=== PATIENT | male | born 1960 | race Caucasian/White ===

== ENCOUNTER → 2017-06-22 10:31 | Outpatient (CLI) | payer MEDICARE, SELFPAY ==
[2017-06-22 12:01] LABS: Hemoglobin A1c 6.4 % (4.2-6.3)
[2017-06-22 12:22] LABS: Anion Gap 8 (5-15); BUN 40 mg/dL (7-18); BUN/Creat Ratio 22.7 RATIO (10-20); Calcium,Total 9.7 mg/dL (8.5-10.1); Chloride 92 mmol/L (98-107); Creatinine, Serum 1.76 mg/dL (0.70-1.30); EST Glomerular Filtration Rate 43 mL/min (>60); Est Glom Filt Rate - Afr Amer 52 mL/min (>60); Glucose 88 mg/dL (74-106); Potassium 3.4 mmol/L (3.5-5.1); Sodium Level 133 mmol/L (136-145); Thyroid Stim Hormone (TSH) 1.88 uIU/mL (0.358-3.74)
== END ==
PROVIDERS: Family Provider Family Medicine; PCP Family Medicine; Visit Provider Family Medicine
DX: I50.9 Heart failure, unspecified (principal); E11.9 Type 2 diabetes mellitus without complications
CPT/HCPCS: 36415; 80048; 83036; 84443

== ENCOUNTER 2017-07-21 13:00 | Inpatient (IN) | payer OTHER, SELFPAY ==
--- NOTE | 2017-07-21 | APP_PTH ---
PATIENT: Danielle DURAN LOC: PCU U#:[id number] AGE/SX: 57/M ROOM: [facility] RE07/21/[address]: Dr. Joss Lockwood MD : 1960 BED: 1 DIS: 07/24/2017 SPEC #: [id number] RECD: 07/24/17 10:15 STATUS: JONO REAneudy #: [id number] HATTIE: 07/21/17 00:[address]: Joss Lockwood DEPT: SURGICAL PATHOLOGY RECD BY: Maurice Caro ENTERED: 07/24/17 10:15 SP TYPE: APPENDIX OTHR DR: Dr. Elsa Mcnair MD Tissues: Appendix, NOS Procedures: Surgery Specimen Level III HEADER OPERATION: Laparoscopic appendectomy PRE-OP DIAGNOSIS: Acute appendicitis TISSUE SUBMITTED: Appendix MICROSCOPIC DIAGNOSIS Appendix, appendectomy: Acute necrotizing appendicitis. Acute serositis. AM:rasheed 07/25/17 MICROSCOPIC DESCRIPTION Slides are reviewed. GROSS DESCRIPTION Received is one container labeled with the patient's name and designated appendix. The specimen consists of an L-shaped appendix measuring 8 cm in length and up to 1 cm in average diameter. The serosa is congested. No obvious perforation is identified. The attached periappendiceal adipose tissue measures up to 2 cm in width. The lumen contains fecal material. No fecalith is identified. Also present in the lumen is semisolid fecal material. Grades 1 6 Tutor sections are submitted in one cassette. / SJ:rasheed 07/24/17 TC:2 CPT: 65082
--- NOTE | 2017-07-21 13:02 | EKG12_ITS ---
Test Reason : PRE OP Blood Pressure : / mmHG Vent. Rate : 089 BPM Atrial Rate : 089 BPM P-R Int : 132 ms QRS Dur : 184 ms QT Int : 412 ms P-R-T Axes : 068 233 033 degrees QTc Int : 501 ms Atrial-sensed ventricular-paced rhythm Biventricular pacemaker detected Abnormal ECG Confirmed by RIKY SCHWARTZ, GIULIA ([id number]), videotape editor JULIANO PADRON ([id number]) on 07/26/2017 5:31:09 PM Referred By: Confirmed By:GIULIA LAN MD
--- NOTE | 2017-07-21 14:08 | CT_ITS ---
STUDY: CT ABDOMEN AND PELVIS WITH CONTRAST REASON FOR EXAM: Male, 57 years old. Right lower quadrant pain RADIATION DOSAGE (If Supplied By Facility): CTDIvol = ( 17.47 ) mGy, DLP = ( 1148.02 ) mGycm TECHNIQUE: Transaxial images were obtained from the dome of the diaphragm to the symphysis pubis with oral contrast. 100ML ml of Isovue 300 contrast was administered. Sagittal and coronal images were reconstructed. Individualized dose optimization techniques were used for this CT. COMPARISON: Prior study of 07/21/2017 FINDINGS: The visualized lung bases are unremarkable. Intracardiac wires are present. Normal liver. Normal gallbladder and extrahepatic biliary system. Normal spleen. Normal pancreas. Normal bilateral adrenal glands. Multiple small right renal cysts are present. There is also noted a subcentimeter left renal cyst. Normal visualized stomach. Normal small intestine. There is mild colonic diverticulosis with no evidence of associated diverticulitis. There is pericecal fatty stranding. There is a dilated fluid-filled appendix measuring up to 12 mm in diameter. A gas containing fecalith is seen in the appendiceal base. There are calcified plaques of the abdominal aorta. Normal inferior vena cava. Normal retroperitoneum. Normal urinary bladder. The prostate is mildly enlarged. The seminal vesicles and seminal vesicle angles appear normal. There is a small fat-containing left inguinal hernia. There are severe degenerative changes from L4 to S1. CT/Abdomen/Pelvis WITH Contrast IMPRESSION: 1. Dilated appendix measuring up to 12 mm. There is a fecalith of the appendiceal base. Pericecal fatty stranding is present. Findings are consistent with acute appendicitis and appear similar to the previous study. No abnormal pericecal fluid collection is evident. 2. Bilateral renal cysts. 3. Mild colonic diverticulosis with no evidence of associated diverticulitis. 4. Mildly enlarged prostate. 5. Small fat-containing ventral hernia. 6. Spinal degenerative changes from L4 to S1. Electronically Signed: Juan Dunaway MD at 19:54 EDT , Service support ,
--- NOTE | 2017-07-21 15:04 | DT_ITS ---
This patient was seen during an EMR downtime July 17, 2017 - July 24, 2017. This patient may have a combination of paper and electronic documentation or all paper documentation. All documentation is viewable within the e-chart portion of [facility] for each patient visit.
--- NOTE | 2017-07-21 20:45 | RAD_ITS ---
STUDY: X-RAY CHEST REASON FOR EXAM: Male, 57 years old. Shortness of breath. TECHNIQUE: Single AP portable view of the chest. COMPARISON: May 26, 2015. FINDINGS: Cardiac monitoring leads are present. Patient has left-sided intracardiac pacemaker. Patient has had a sternotomy. The lungs are clear and expanded. There is no demonstrated pleural abnormality. There is mild cardiac enlargement. Normal mediastinum and meghna. Normal visualized pulmonary arteries. There is atherosclerotic calcification of the aortic arch with tortuosity. Normal visualized thoracic spine. Normal visualized ribs, clavicles, and shoulders. There is no demonstrated abnormality of the visualized soft tissue structures of the upper abdomen. RAD/Chest 1 View (Portable) IMPRESSION: Cardiomegaly. The cardiac size is larger than was apparent on the previous radiograph. Electronically Signed: Dori Gonzales MD at 0:56 EDT , Service support ,
--- NOTE | 2017-07-22 05:55 | RAD_ITS ---
STUDY: X-RAY CHEST REASON FOR EXAM: Male, 57 years old. Chest pain and shortness of breath after recent abdominal surgery. TECHNIQUE: Single AP portable view of the chest. COMPARISON: Chest radiograph dated May 26, 2015 and July 21, 2017 time stamped 8:47 PM.. FINDINGS: Patient has left-sided intracardiac pacemaker. Patient has had a sternotomy. Cardiac monitoring leads are present. The lungs are underexpanded with crowding of the bronchovascular markings and obscuration of lung bases. There is a small right-sided pleural effusion. There is mild cardiac enlargement. Normal mediastinum and meghna. Normal visualized pulmonary arteries. There is atherosclerotic tortuosity of the aortic arch and descending thoracic aorta. Normal visualized thoracic spine. Normal visualized ribs, clavicles, and shoulders. There is no demonstrated abnormality of the visualized soft tissue structures of the upper abdomen. RAD/Chest 1 View (Portable) IMPRESSION: Expiratory chest radiograph with cardiomegaly and mild pulmonary congestion. Electronically Signed: Dori Gonzales MD at 7:00 EDT , Service support ,
[2017-07-23 07:38] LABS: Hematocrit 44.7 % (40-54); Hemoglobin 14.7 g/dl (13.0-16.5); Mean Corp Hgb Conc 32.9 g/gl (32-36); Mean Corpuscular Hgb 31.4 pg (27.0-32.0); Mean Corpuscular Volume 95.5 fL (80-94); RBC Distribution Width CV 14.4 % (11.6-14.6); Red Blood Count 4.68 M/mm3 (4.6-6.2)
[2017-07-23 07:39] LABS: Mean Platelet Vol. 9.8 fl (6.2-12.0); Platelet Count 277 K/mm3 (150-450); RBC Distribution Width SD 9.8 fl (35.1-43.9); Scan Indicated on CBC? Y/N NO
[2017-07-23 12:48] LABS: Anion Gap 8 (5-15); BUN 15 mg/dL (7-18); BUN/Creat Ratio 11.3 RATIO (10-20); Calcium,Total 8.6 mg/dL (8.5-10.1); Chloride 96 mmol/L (98-107); Creatinine, Serum 1.33 mg/dL (0.70-1.30); EST Glomerular Filtration Rate 59 mL/min (>60); Est Glom Filt Rate - Afr Amer 72 mL/min (>60); Glucose 91 mg/dL (74-106); Magnesium 2.1 mg/dL (1.6-2.6); Phosphorus 2.3 mg/dL (2.5-4.9); Potassium 3.6 mmol/L (3.5-5.1); Sodium Level 137 mmol/L (136-145)
[2017-07-24 05:58] LABS: Hemoglobin 14.8 g/dl (13.0-16.5); Mean Corp Hgb Conc 33.6 g/gl (32-36); Mean Corpuscular Hgb 31.9 pg (27.0-32.0); Mean Corpuscular Volume 94.8 fL (80-94); Mean Platelet Vol. 9.7 fl (6.2-12.0); Platelet Count 301 K/mm3 (150-450); RBC Distribution Width CV 14.3 % (11.6-14.6); RBC Distribution Width SD 47.7 fl (35.1-43.9); Red Blood Count 4.64 M/mm3 (4.6-6.2); White Blood Count 8.1 K/mm3 (4.4-11.0)
[2017-07-24 06:09] LABS: Anion Gap 8 (5-15); BUN 15 mg/dL (7-18); BUN/Creat Ratio 11.8 RATIO (10-20); Chloride 99 mmol/L (98-107); Creatinine, Serum 1.27 mg/dL (0.70-1.30); EST Glomerular Filtration Rate 62 mL/min (>60); Est Glom Filt Rate - Afr Amer 75 mL/min (>60); Glucose 94 mg/dL (74-106); Phosphorus 2.7 mg/dL (2.5-4.9); Potassium 3.8 mmol/L (3.5-5.1); Sodium Level 138 mmol/L (136-145)
[2017-07-24 06:42] LABS: Scan Indicated on CBC? Y/N NO
[2017-07-24 09:57] VITALS: BP 103/68; PULSE 79; RESP 16; TEMP 36.7; O2SAT 93
[2017-07-24 10:16] VITALS: PULSE 77
[2017-07-24] MEDS: Metoprolol Tartrate 25 MG Tablet PO (10:16)
[2017-07-24] MEDS: Spironolactone 25 MG Tablet PO (10:16)
[2017-07-24] MEDS: Digoxin 250 MCG Tablet PO (10:16)
[2017-07-24] MEDS: Mexiletine 150 MG Capsule PO (10:16)
[2017-07-24] MEDS: Allopurinol 300 MG Tablet PO (10:17)
[2017-07-24] MEDS: Pantoprazole Sodium 40 MG Tablet PO (10:17)
[2017-07-24] MEDS: clonazePAM 0.5 MG Tablet PO (10:20)
[2017-07-24 11:08] LABS: International Normalized Ratio 2.2; Partial Thromboplast Time 45.5 Seconds (24.1-36.2); Prothrombin Time (Protime)PT. 24.9 SECONDS (11.7-14.9)
[2017-07-24 11:09] VITALS: PULSE 75
--- NOTE | 2017-07-24 11:48 | CASEMGMT ---
Pt states has 2 home oxygen concentrators. He states one he bought and the other is from [facility] and they gave it to him after 'he fired them.' He states that they were 'just going to junk it' so they let him keep it. Pt states has several full portable tanks also and only uses oxygen when needed. He states that he checks his pulse ox at his neighbors house occasionally. Pt states no need for any script for home oxygen at discharge. Pt states no need for any further services at discharge. Pt states I am ready to go today, are they gonna get me out of here?' Pt states that his mother is going to stay with him for the next several days and that his sister will pick him up to take him home. Wilman BENZ CM
[2017-07-24 12:01] LABS: Hematocrit 50.3 % (40-54); Hemoglobin 17.3 g/dl (13.0-16.5); Mean Corp Hgb Conc 34.4 g/gl (32-36); Mean Corpuscular Hgb 31.9 pg (27.0-32.0); Mean Corpuscular Volume 92.8 fL (80-94); RBC Distribution Width CV 14.3 % (11.6-14.6); Red Blood Count 5.42 M/mm3 (4.6-6.2); White Blood Count 16.2 K/mm3 (4.4-11.0)
[2017-07-24 12:02] LABS: Absolute Lymphocyte Count 2.37 X10^3/ul (0.83-4.51); Absolute Neutrophil Count 12.3 X10^3/uL (2.0-7.7); Basophil# 0.03 X10^3/uL; Basophil% 0.2 % (0-1); Eosinophil# 0.13 X10^3/uL; Eosinophils% 0.8 % (0-5); Lymphocyte # 2.37 X10^3/ul (4.0); Lymphocyte % 14.6 % (19-41); Mean Platelet Vol. 9.8 fl (6.2-12.0); Monocyte# 1.35 X10^3/uL; Monocyte% 8.3 % (0-10); Neutrophil # 12.26 X10^3/uL (2.7-7.7); Neutrophil % 75.7 % (47-70); POSITIVE COUNT NO; POSITIVE DIFFERENTIAL NO; POSITIVE MORPHOLOGY NO; Platelet Count 279 K/mm3 (150-450); RBC Distribution Width SD 47.3 fl (35.1-43.9)
[2017-07-24 14:05] VITALS: BP 96/41; PULSE 78; RESP 18; TEMP 37.1; O2SAT 95
[2017-07-24 17:26] LABS: Base Excess 7 mmol/L (-2 to +2); Bicarbonate 30.1 mmol/L (22-26); Blood Gas Specimen Type ALINE; O2 Delivery Device Room Air; PO2 42 mmHG (75-100); SITE L Radial; SO2 82 % (95-99); Time Given 2028; Total Carbon Dioxide 31 mmol/L; pCO2 38.6 mmHg (35-45)
[2017-07-24 17:26] LABS: Base Excess 7 mmol/L (-2 to +2); Bicarbonate 30.4 mmol/L (22-26); Blood Gas Specimen Type ALINE; O2 Delivery Device Nasal Can; PO2 62 mmHG (75-100); SITE L Radial; SO2 93 % (95-99); Time Given 514; Total Carbon Dioxide 32 mmol/L; pH 7.47 (7.35-7.45)
[2017-07-24 20:59] LABS: Glucose 136 mg/dL (74-106)
[2017-07-24 21:00] LABS: Anion Gap 10 (5-15); BUN 29 mg/dL (7-18); BUN/Creat Ratio 16.3 RATIO (10-20); Calcium,Total 9.4 mg/dL (8.5-10.1); Chloride 92 mmol/L (98-107); Creatinine, Serum 1.78 mg/dL (0.70-1.30); EST Glomerular Filtration Rate 42 mL/min (>60); Est Glom Filt Rate - Afr Amer 51 mL/min (>60); Potassium 3.3 mmol/L (3.5-5.1); Sodium Level 134 mmol/L (136-145)
[2017-07-25 02:38] LABS: BUN 24 mg/dL (7-18); Glucose 103 mg/dL (74-106)
[2017-07-25 02:39] LABS: AST(SGOT) 19 U/L (15-37); Alanine Aminotransfer ALT/SGPT 17 U/L (16-61); Albumin, Serum 3.5 g/dL (3.2-5.0); Alkaline Phosphatase 41 U/L (45-117); Anion Gap 9 (5-15); BUN/Creat Ratio 17.9 RATIO (10-20); Calcium,Total 8.3 mg/dL (8.5-10.1); Chloride 96 mmol/L (98-107); Creatinine, Serum 1.34 mg/dL (0.70-1.30); EST Glomerular Filtration Rate 59 mL/min (>60); Est Glom Filt Rate - Afr Amer 72 mL/min (>60); Globulin 3.5 g/dL (2.2-4.2); Magnesium 1.6 mg/dL (1.6-2.6); Phosphorus 3.1 mg/dL (2.5-4.9); Potassium 2.9 mmol/L (3.5-5.1); Sodium Level 136 mmol/L (136-145)
[2017-07-25 04:37] LABS: Prothrombin Time (Protime)PT. 19.6 SECONDS (11.7-14.9)
[2017-07-25 04:38] LABS: Hematocrit 41.2 % (40-54); Hemoglobin 13.8 g/dl (13.0-16.5); International Normalized Ratio 1.7; Mean Corpuscular Hgb 31.4 pg (27.0-32.0); Mean Corpuscular Volume 93.6 fL (80-94); Partial Thromboplast Time 41.7 Seconds (24.1-36.2); White Blood Count 12.7 K/mm3 (4.4-11.0)
[2017-07-25 04:39] LABS: Absolute Lymphocyte Count 2.34 X10^3/ul (0.83-4.51); Absolute Neutrophil Count 9.1 X10^3/uL (2.0-7.7); Basophil# 0.03 X10^3/uL; Basophil% 0.2 % (0-1); Eosinophil# 0.16 X10^3/uL; Eosinophils% 1.3 % (0-5); Lymphocyte # 2.34 X10^3/ul (4.0); Lymphocyte % 18.4 % (19-41); Mean Corp Hgb Conc 33.5 g/gl (32-36); Mean Platelet Vol. 9.8 fl (6.2-12.0); Monocyte# 1.09 X10^3/uL; Monocyte% 8.6 % (0-10); Neutrophil # 9.07 X10^3/uL (2.7-7.7); Neutrophil % 71.2 % (47-70); POSITIVE COUNT NO; POSITIVE DIFFERENTIAL NO; POSITIVE MORPHOLOGY NO; Platelet Count 242 K/mm3 (150-450); RBC Distribution Width CV 14.1 % (11.6-14.6); RBC Distribution Width SD 46.2 fl (35.1-43.9)
[2017-07-25] MEDS: Gabapentin 300 MG Capsule PO (05:56)
[2017-07-25] MEDS: Piperacil/Tazobactam 3.375 GM/50 ML ML IV (05:58)
[2017-07-25] MEDS: 0.9% NaCl Peripheral Flush Adult/Peds IV (06:00)
[2017-07-25] MEDS: Morphine 4 MG/ML Syringe IV (06:02)
[2017-07-25 09:42] LABS: Digoxin Level 1.45 ng/mL (0.80-2.00); Hemoglobin A1c 6.6 % (4.2-6.3)
[2017-07-25 10:12] LABS: ALB/GLOB Ratio 0.9 RATIO (0.9-2.4); AST(SGOT) 19 U/L (15-37); Alanine Aminotransfer ALT/SGPT 18 U/L (16-61); Albumin, Serum 3.2 g/dL (3.2-5.0); Alkaline Phosphatase 42 U/L (45-117); BUN 19 mg/dL (7-18); BUN/Creat Ratio 14.2 RATIO (10-20); Calcium,Total 8.2 mg/dL (8.5-10.1); Creatinine, Serum 1.34 mg/dL (0.70-1.30); EST Glomerular Filtration Rate 59 mL/min (>60); Est Glom Filt Rate - Afr Amer 72 mL/min (>60); Globulin 3.7 g/dL (2.2-4.2); Glucose 107 mg/dL (74-106); Phosphorus 1.9 mg/dL (2.5-4.9); Protein, Total 6.9 g/dL (6.4-8.2)
[2017-07-25 10:13] LABS: Anion Gap 8 (5-15); Chloride 97 mmol/L (98-107); Magnesium 2.3 mg/dL (1.6-2.6); Potassium 3.6 mmol/L (3.5-5.1); Sodium Level 137 mmol/L (136-145)
[2017-07-25 16:28] LABS: Anion Gap 8 (5-15); BUN 14 mg/dL (7-18); Calcium,Total 8.1 mg/dL (8.5-10.1); Chloride 95 mmol/L (98-107); Creatinine, Serum 1.17 mg/dL (0.70-1.30); EST Glomerular Filtration Rate 69 mL/min (>60); Est Glom Filt Rate - Afr Amer 84 mL/min (>60); Glucose 94 mg/dL (74-106); Phosphorus 3.4 mg/dL (2.5-4.9); Potassium 3.8 mmol/L (3.5-5.1); Sodium Level 134 mmol/L (136-145)
[2017-07-25 18:18] LABS: Red Blood Count 4.52 M/mm3 (4.6-6.2); White Blood Count 13.9 K/mm3 (4.4-11.0)
[2017-07-25 18:19] LABS: Absolute Lymphocyte Count 2.01 X10^3/ul (0.83-4.51); Absolute Neutrophil Count 10.4 X10^3/uL (2.0-7.7); Basophil# 0.03 X10^3/uL; Basophil% 0.2 % (0-1); Eosinophil# 0.17 X10^3/uL; Eosinophils% 1.2 % (0-5); Hematocrit 42.7 % (40-54); Hemoglobin 14.5 g/dl (13.0-16.5); Lymphocyte # 2.01 X10^3/ul (4.0); Lymphocyte % 14.5 % (19-41); Mean Corpuscular Hgb 32.1 pg (27.0-32.0); Mean Corpuscular Volume 94.5 fL (80-94); Mean Platelet Vol. 9.5 fl (6.2-12.0); Monocyte# 1.24 X10^3/uL; Monocyte% 8.9 % (0-10); Neutrophil # 10.42 X10^3/uL (2.7-7.7); Neutrophil % 74.9 % (47-70); POSITIVE COUNT NO; POSITIVE DIFFERENTIAL NO; POSITIVE MORPHOLOGY NO; Platelet Count 241 K/mm3 (150-450); RBC Distribution Width CV 14.5 % (11.6-14.6); RBC Distribution Width SD 48.6 fl (35.1-43.9)
[2017-07-25 18:20] LABS: International Normalized Ratio 1.8; Partial Thromboplast Time 46.2 Seconds (24.1-36.2); Prothrombin Time (Protime)PT. 20.5 SECONDS (11.7-14.9)
[2017-07-28 18:51] LABS: Bedside Glucose 125 mg/dL (70-110)
== END 2017-07-24 14:51 | disposition home or self-care (01) | DRG 339 ==
LOC: ED 15:01 → SDC 15:04 → MS3 17:01 → PCU 07-24 11:01
PROVIDERS: Internal Medicine; Admitting Provider Surgery; Emergency Provider Emergency Medicine; Family Provider Family Medicine; PCP Family Medicine; Visit Provider Surgery
PROC: 0DTJ4ZZ Resection of Appendix, Percutaneous Endoscopic Approach (ICD-10-PCS; CPT 44970; principal; 2017-07-21 11:40)
DX: K35.3 Acute appendicitis with localized peritonitis (principal); I13.0 Hypertensive heart and chronic kidney disease with heart failure and stage 1 through stage 4 chronic kidney disease, or unspecified chronic kidney disease; I50.42 Chronic combined systolic (congestive) and diastolic (congestive) heart failure; I25.5 Ischemic cardiomyopathy; I25.10 Atherosclerotic heart disease of native coronary artery without angina pectoris; F17.210 Nicotine dependence, cigarettes, uncomplicated; E11.22 Type 2 diabetes mellitus with diabetic chronic kidney disease; N18.9 Chronic kidney disease, unspecified; Z79.4 Long term (current) use of insulin; E78.5 Hyperlipidemia, unspecified; E83.39 Other disorders of phosphorus metabolism; Z95.1 Presence of aortocoronary bypass graft; Z79.01 Long term (current) use of anticoagulants; Z79.82 Long term (current) use of aspirin; Z79.899 Other long term (current) drug therapy
CPT/HCPCS: 36415; 71045; 74177; 80048; 80053; 80162; 82803; 82962; 83036; 83735; 84100; 85025; 85027; 85610; 85730; 86644; 86850; 86900; 88304; 93005; 96361; 96365; 96375; 97802; 99284; J7040; J7050; P9017; Q9967; A4216; J1940; J2405

== ENCOUNTER 2017-08-24 08:27 | Emergency (ER) | payer OTHER, SELFPAY ==
[2017-08-24] VITALS (8 sets, daily range): BP systolic 106–119; BP diastolic 73–87; PULSE 71–87; RESP 15–24; TEMP 36.2; O2SAT 93–99; BMI 28.1
--- NOTE | 2017-08-24 08:43 | EKG12_ITS ---
Test Reason : DEFIB FIRE Blood Pressure : / mmHG Vent. Rate : 075 BPM Atrial Rate : 075 BPM P-R Int : 136 ms QRS Dur : 156 ms QT Int : 418 ms P-R-T Axes : 073 230 007 degrees QTc Int : 466 ms Atrial-sensed ventricular-paced rhythm Biventricular pacemaker detected Abnormal ECG Confirmed by RIKY SCHWARTZ, GIULIA ([id number]), greeting card editor JULIANO PADRON ([id number]) on 08/29/2017 2:18:20 PM Referred By: MIGEL Confirmed By:GIULIA LAN MD
--- NOTE | 2017-08-24 08:50 | RAD_ITS ---
STUDY: X-RAY CHEST REASON FOR EXAM: Male, 57 years old. Issue with the pacemaker. TECHNIQUE: Single AP portable view of the chest. COMPARISON: Comparison is made with prior study dated July 22, 2017. FINDINGS: EKG electrodes are seen. The lungs are clear and expanded. There is no demonstrated pleural abnormality. The patient is status post midline sternotomy and coronary bypass surgery. A left-sided ICD is seen. This is unchanged. Normal mediastinum and meghna. Normal visualized pulmonary arteries. There is atherosclerotic calcification of the aortic arch with tortuosity. Normal visualized thoracic spine. Normal visualized ribs, clavicles, and shoulders. There is no demonstrated abnormality of the visualized soft tissue structures of the upper abdomen. RAD/Chest 1 View (Portable) IMPRESSION: Stable examination. Electronically Signed: Devante Mohr MD at 9:22 EDT Tel [phone], Service support ,
[2017-08-24 08:52] LABS: Absolute Lymphocyte Count 2.86 X10^3/ul (0.83-4.51); Absolute Neutrophil Count 4.9 X10^3/uL (2.0-7.7); Basophil# 0.04 X10^3/uL; Basophil% 0.4 % (0-1); Eosinophil# 0.19 X10^3/uL; Eosinophils% 2.1 % (0-5); Hematocrit 49.3 % (40-54); Hemoglobin 16.9 g/dl (13.0-16.5); Lymphocyte # 2.86 X10^3/ul (4.0); Mean Corp Hgb Conc 34.3 g/gl (32-36); Mean Corpuscular Hgb 31.7 pg (27.0-32.0); Mean Corpuscular Volume 92.5 fL (80-94); Mean Platelet Vol. 10.1 fl (6.2-12.0); Monocyte# 1.18 X10^3/uL; Monocyte% 12.8 % (0-10); Neutrophil # 4.94 X10^3/uL (2.7-7.7); Neutrophil % 53.4 % (47-70); POSITIVE COUNT NO; POSITIVE DIFFERENTIAL NO; POSITIVE MORPHOLOGY NO; Platelet Count 299 K/mm3 (150-450); RBC Distribution Width CV 14.6 % (11.6-14.6); RBC Distribution Width SD 48.7 fl (35.1-43.9); Red Blood Count 5.33 M/mm3 (4.6-6.2); White Blood Count 9.2 K/mm3 (4.4-11.0)
[2017-08-24 09:09] LABS: Anion Gap 9 (5-15); BUN 42 mg/dL (7-18); BUN/Creat Ratio 22.7 RATIO (10-20); Calcium,Total 9.8 mg/dL (8.5-10.1); Chloride 91 mmol/L (98-107); Creatinine, Serum 1.85 mg/dL (0.70-1.30); EST Glomerular Filtration Rate 40 mL/min (>60); Est Glom Filt Rate - Afr Amer 49 mL/min (>60); Estimated Creatinine Clearance 41.68 ml/min; Glucose 107 mg/dL (74-106); Sodium Level 133 mmol/L (136-145)
[2017-08-24] MEDS: Magnesium Sulfate 2 GM IV IV (10:30)
--- NOTE | 2017-08-24 10:57 | ED.RN ---
called pharmacy regarding KCL
--- NOTE | 2017-08-24 12:34 | ED.VISSUMM ---
- ER Visit Summary Date of Service: 08/24/17 Chief Complaint: Defibrillator discharging. History of Present Illness: The patient is a 57 M presents after his defibrillator discharged last night. He had no chest pain, no shortness of breath, he had no palpitations although the chief complaint does say that. No fever chills. Physical Examination: He has an otherwise unremarkable examination. Clear lungs heart is regular abdomen is soft and nontender no pallor moist mucous membranes neurologically intact. Emergency Department Course and Treatment: Pacemaker was interrogated, it did show ventricular tachycardia, and appropriate discharge of the defibrillator. His potassium magnesium were low and were replaced in the emergency department apparently he has been taking his antiarrhythmics only at half dose. I discussed with his matrix drier tender, Dr. Oneill, he will be discharged in stable condition his troponin was marginal but upon repeat troponin this is moving. After discussing with his matrix drier tender he needs to go back to his original dose of the antiarrhythmic. Disposition: Discharged stable condition Impression: Ventricular tachycardia with appropriate discharge of defibrillator This note was generated with [employer] dictation software. It may contain incorrect words, spelling, and punctuation that were not noted in review of the chart prior to signing ED Disposition - Plan for ED Patient: Chief Complaint: Palpitations Referrals: Elsa Mcnair MD [Primary Care Provider] -
--- NOTE | 2017-08-24 12:38 | ED.DCSUM_ITS ---
- ER Visit Summary Date of Service: 08/24/17 Chief Complaint: Defibrillator discharging. History of Present Illness: The patient is a 57 M presents after his defibrillator discharged last night. He had no chest pain, no shortness of breath, he had no palpitations although the chief complaint does say that. No fever chills. Physical Examination: He has an otherwise unremarkable examination. Clear lungs heart is regular abdomen is soft and nontender no pallor moist mucous membranes neurologically intact. Emergency Department Course and Treatment: Pacemaker was interrogated, it did show ventricular tachycardia, and appropriate discharge of the defibrillator. His potassium magnesium were low and were replaced in the emergency department apparently he has been taking his antiarrhythmics only at half dose. I discussed with his photograph developer, Dr. Oneill, he will be discharged in stable condition his troponin was marginal but upon repeat troponin this is moving. After discussing with his photograph developer he needs to go back to his original dose of the antiarrhythmic. Disposition: Discharged stable condition Impression: Ventricular tachycardia with appropriate discharge of defibrillator This note was generated with [employer] dictation software. It may contain incorrect words, spelling, and punctuation that were not noted in review of the chart prior to signing ED Disposition - Plan for ED Patient: Chief Complaint: Palpitations Referrals: Elsa Mcnair MD [Primary Care Provider] -
--- NOTE | 2017-08-24 12:40 | ED.DEP ---
ED Disposition - Plan for ED Patient: Disposition: Home or Assisted Living Chief Complaint: Palpitations Diagnosis: History of implantable cardioverter-defibrillator (ICD) placement Referrals: Raul Oneill MD [STAFF PHYSICIAN] - 3-5 Days Additional Instructions: Make sure you take your antiarrhythmics the way they are prescribed. Follow-up Dr. Oneill for further workup.
== END 2017-08-24 13:50 | disposition home or self-care (01) ==
PROVIDERS: Emergency Provider Emergency Medicine; Family Provider Family Medicine; PCP Family Medicine
DX: I47.2 Ventricular tachycardia (principal); Z95.810 Presence of automatic (implantable) cardiac defibrillator
CPT/HCPCS: 71045; 80048; 83735; 84484; 85025; 93005; 96365; 96366; 96367; 99284; J7050; A4216

== ENCOUNTER → 2017-09-06 12:22 | Outpatient (CLI) | payer MEDICARE, SELFPAY ==
[2017-09-06 14:47] LABS: Anion Gap 7 (5-15); BUN 25 mg/dL (7-18); BUN/Creat Ratio 13.5 RATIO (10-20); Chloride 97 mmol/L (98-107); Creatinine, Serum 1.85 mg/dL (0.70-1.30); EST Glomerular Filtration Rate 40 mL/min (>60); Est Glom Filt Rate - Afr Amer 49 mL/min (>60); Glucose 94 mg/dL (74-106); Magnesium 1.7 mg/dL (1.6-2.6); Potassium 3.6 mmol/L (3.5-5.1); Sodium Level 139 mmol/L (136-145)
[2017-09-06 14:54] LABS: AST(SGOT) 34 U/L (15-37); Alanine Aminotransfer ALT/SGPT 37 U/L (16-61); Alkaline Phosphatase 53 U/L (45-117); Bilirubin, Direct 0.13 mg/dL (0.00-0.30); Cholesterol 224 mg/dL (200); Globulin 3.9 g/dL (2.2-4.2); High Density Lipoprotein 32 mg/dL; Protein, Total 7.9 g/dL (6.4-8.2); Triglycerides 400 mg/dL
== END ==
PROVIDERS: Internal Medicine Cardiovascular Disease; Family Provider Family Medicine; PCP Family Medicine; Visit Provider Physician Assistant Medical
DX: E87.6 Hypokalemia (principal); I25.810 Atherosclerosis of coronary artery bypass graft(s) without angina pectoris; I10 Essential (primary) hypertension; E78.5 Hyperlipidemia, unspecified; I50.42 Chronic combined systolic (congestive) and diastolic (congestive) heart failure; I25.5 Ischemic cardiomyopathy; Z95.0 Presence of cardiac pacemaker; Z79.899 Other long term (current) drug therapy
CPT/HCPCS: 36415; 80048; 80061; 80076; 83735

== ENCOUNTER → 2017-11-28 15:15 | Outpatient (CLI) | payer MEDICARE, SELFPAY ==
[2017-11-28 15:24] LABS: Bacteria 0 SEEN /hpf (None Seen); Mucous, Urine 0 SEEN /hpf (<or=2+); Red Blood Cells-Urine 0 SEEN /hpf (0-5); Squamous Epithelial Cells - UA 0 SEEN /hpf (0-5)
[2017-11-28 16:16] LABS: Hematocrit 44.3 % (40-54); Mean Corp Hgb Conc 33.9 g/gl (32-36); Mean Corpuscular Hgb 32.1 pg (27.0-32.0); Mean Corpuscular Volume 94.9 fL (80-94); Mean Platelet Vol. 9.9 fl (6.2-12.0); Platelet Count 330 K/mm3 (150-450); RBC Distribution Width CV 15.6 % (11.6-14.6); RBC Distribution Width SD 52.4 fl (35.1-43.9); Red Blood Count 4.67 M/mm3 (4.6-6.2); White Blood Count 11.3 K/mm3 (4.4-11.0)
[2017-11-28 16:18] LABS: International Normalized Ratio 2.1; Prothrombin Time (Protime)PT. 23.7 SECONDS (11.7-14.9); Scan Indicated on CBC? Y/N NO
[2017-11-28 16:32] LABS: Anion Gap 9 (5-15); BUN 21 mg/dL (7-18); BUN/Creat Ratio 11.7 RATIO (10-20); Calcium,Total 9.7 mg/dL (8.5-10.1); Chloride 98 mmol/L (98-107); EST Glomerular Filtration Rate 42 mL/min (>60); Est Glom Filt Rate - Afr Amer 50 mL/min (>60); Glucose 98 mg/dL (74-106); Potassium 4.1 mmol/L (3.5-5.1); Sodium Level 137 mmol/L (136-145)
[2017-11-28 16:59] LABS: Color, Urine Yellow (Yellow); Glucose, Dipstick Normal (Normal); Ketone-Dipstick Negative (Negative); Leukocyte Esterase-Dipstick 25 /ul (Negative); Nitrite-Dipstick Negative (Negative); Occult Blood-Urine Negative /ul (Negative); Protein-Dipstick 15 mg/dl (Negative); Urine Bilirubin Dipstick Negative (Negative); Urine Clarity Clear (Clear); Urine Urobilinogen Normal (Normal)
[2017-11-28 17:16] LABS: White Blood Cells 0-5 SEEN /hpf (0-5)
== END ==
PROVIDERS: Family Provider Family Medicine; PCP Family Medicine; Referring Provider Internal Medicine Cardiovascular Disease; Visit Provider Internal Medicine Cardiovascular Disease
DX: E78.5 Hyperlipidemia, unspecified (principal); Z95.810 Presence of automatic (implantable) cardiac defibrillator; I25.5 Ischemic cardiomyopathy; I50.42 Chronic combined systolic (congestive) and diastolic (congestive) heart failure
CPT/HCPCS: 36415; 80048; 81001; 85027; 85610

== ENCOUNTER 2017-12-08 06:34 | Day surgery (SDC) | payer MEDICARE, SELFPAY ==
[2017-12-07 08:09] VITALS: BMI 29.9
[2017-12-08 06:45] LABS: Prothrombin Time Fingerstick 15.4 SEC (11.9-14.4)
--- NOTE | 2017-12-08 08:52 | OP.PCM_ITS ---
Operative Report Date of Procedure: 12/08/17 Preoperative diagnosis is device at end of life for normal battery depletion. Postoperative diagnosis same as above. After informed consent and IV antibiotics the patient was brought to the [place] catheterization laboratory and the skin over the device was prepped and draped in the usual sterile manner. Intermittent boluses of Versed, fentanyl were used for sedation and analgesia as well as 1% subcutaneous lidocaine. An incision was made over the pre-existing device. Using blunt and Bovie dissection the pocket was opened and the device was removed. Careful attention was paid not to injure the pre-existing leads. The leads were removed from the device header and they were interrogated. There is normal lead function. Hemostasis was obtained. The pocket was flushed with antibiotic solution. The sponge and needle count were correct. The new device was brought to the field. The leads were placed in the appropriate position in the header and secured by the set screw. The leads and the device were then placed in the pocket. The pocket was closed with a deep layer of running 2-0 Vicryl, a superficial layer of running 4-0 Vicryl, skin with Steri-Strips which were covered with a rolled 4 x 4 and Tegaderm. Patient left the room with the device programmed to proper parameters and there were no complications. The device is a [employer] SYSTEMS MANAGER device. Tyrex pouch used. All lead parameters were tested and found to be functionally normal. Lead and device serial and model numbers are available in the chart documents provided by the device company sales and marketing representative procedure summary.
== END 2017-12-08 10:00 | disposition home or self-care (01) ==
PROVIDERS: Family Provider Family Medicine; PCP Family Medicine; Referring Provider Internal Medicine Cardiovascular Disease; Visit Provider Internal Medicine Cardiovascular Disease
DX: Z45.02 Encounter for adjustment and management of automatic implantable cardiac defibrillator (principal); Z00.6 Encounter for examination for normal comparison and control in clinical research program; I10 Essential (primary) hypertension; I25.10 Atherosclerotic heart disease of native coronary artery without angina pectoris; I25.5 Ischemic cardiomyopathy; Z79.01 Long term (current) use of anticoagulants; Z95.1 Presence of aortocoronary bypass graft; F17.210 Nicotine dependence, cigarettes, uncomplicated
CPT/HCPCS: 33264; 36416; 85610; 93641; 99152; 99153; J7040; J7050

== ENCOUNTER → 2018-07-17 09:44 | Outpatient (CLI) | payer MEDICARE, SELFPAY ==
[2018-03-07 06:20] VITALS: BMI 28.2
[2018-07-17 10:49] LABS: AST(SGOT) 27 U/L (15-37); Alanine Aminotransfer ALT/SGPT 23 U/L (16-61); Albumin, Serum 4.4 g/dL (3.2-5.0); Alkaline Phosphatase 47 U/L (45-117); Bilirubin, Direct 0.13 mg/dL (0.00-0.30); Cholesterol 190 mg/dL (200); High Density Lipoprotein 34 mg/dL; Protein, Total 8.4 g/dL (6.4-8.2); Triglycerides 325 mg/dL; Very Low Density Lipoprotein 65 mg/dL (5-40)
[2018-07-17 10:57] LABS: Anion Gap 10 (5-15); BUN 48 mg/dL (7-18); Calcium,Total 9.4 mg/dL (8.5-10.1); Chloride 94 mmol/L (98-107); Creatinine, Serum 2.09 mg/dL (0.70-1.30); EST Glomerular Filtration Rate 35 mL/min (>60); Est Glom Filt Rate - Afr Amer 42 mL/min (>60); Glucose 133 mg/dL (74-106); Potassium 3.5 mmol/L (3.5-5.1); Sodium Level 137 mmol/L (136-145)
[2018-07-17 11:03] LABS: Digoxin Level 2.81 ng/mL (0.80-2.00)
== END ==
PROVIDERS: Internal Medicine Cardiovascular Disease; Family Provider Family Medicine; PCP Family Medicine; Referring Provider Family Medicine; Visit Provider Family Medicine
DX: I50.9 Heart failure, unspecified (principal); N18.3 Chronic kidney disease, stage 3 (moderate); E11.9 Type 2 diabetes mellitus without complications
CPT/HCPCS: 36415; 80048; 80061; 80076; 80162

== ENCOUNTER → 2018-08-01 | Outpatient (CLI) | payer MEDICARE, SELFPAY ==
[2018-03-07 06:20] VITALS: BMI 28.2
[2018-08-01 10:58] LABS: Digoxin Level 1.66 ng/mL (0.80-2.00)
== END | disposition home or self-care (01) ==
PROVIDERS: Family Provider Family Medicine; PCP Family Medicine; Referring Provider Internal Medicine Cardiovascular Disease; Visit Provider Internal Medicine Cardiovascular Disease
DX: Z51.81 Encounter for therapeutic drug level monitoring (principal); Z79.899 Other long term (current) drug therapy
CPT/HCPCS: 36415; 80162

== ENCOUNTER → 2018-10-08 14:42 | Outpatient (CLI) | payer MEDICARE, SELFPAY ==
[2018-09-20 14:44] VITALS: BMI 29.7
[2018-10-08 17:42] LABS: Anion Gap 7 (5-15); BUN 27 mg/dL (7-18); BUN/Creat Ratio 12.9 RATIO (10-20); Calcium,Total 9.6 mg/dL (8.5-10.1); Chloride 97 mmol/L (98-107); Creatinine, Serum 2.09 mg/dL (0.70-1.30); EST Glomerular Filtration Rate 35 mL/min (>60); Est Glom Filt Rate - Afr Amer 42 mL/min (>60); Glucose 114 mg/dL (74-106); Potassium 3.7 mmol/L (3.5-5.1); Sodium Level 137 mmol/L (136-145)
[2018-10-08 18:10] LABS: Digoxin Level 1.04 ng/mL (0.80-2.00)
== END ==
PROVIDERS: Family Provider Family Medicine; PCP Family Medicine; Visit Provider Internal Medicine Cardiovascular Disease
DX: I25.810 Atherosclerosis of coronary artery bypass graft(s) without angina pectoris (principal); I25.5 Ischemic cardiomyopathy; I51.3 Intracardiac thrombosis, not elsewhere classified; I50.42 Chronic combined systolic (congestive) and diastolic (congestive) heart failure; E78.00 Pure hypercholesterolemia, unspecified; Z79.01 Long term (current) use of anticoagulants; I11.0 Hypertensive heart disease with heart failure
CPT/HCPCS: 36415; 80048; 80162

== ENCOUNTER → 2019-02-08 13:26 | Outpatient (CLI) | payer MEDICARE, SELFPAY ==
[2018-09-20 14:44] VITALS: BMI 29.7
[2019-02-08 15:38] LABS: Absolute Lymphocyte Count 2.44 X10^3/uL (0.83-4.51); Absolute Neutrophil Count 6.1 X10^3/uL (2.0-7.7); Basophil# 0.04 X10^3/uL; Basophil% 0.4 % (0-1); Eosinophil# 0.27 X10^3/uL; Eosinophils% 2.8 % (0-5); Hemoglobin 17.2 g/dL (13.0-16.5); Lymphocyte # 2.44 X10^3/ul (4.0); Mean Corp Hgb Conc 33.7 g/dL (32-36); Mean Corpuscular Hgb 31.6 pg (27.0-32.0); Mean Corpuscular Volume 93.6 fL (80-94); Mean Platelet Vol. 9.9 fl (6.2-12.0); Monocyte# 0.83 X10^3/uL; Monocyte% 8.5 % (0-10); NRBC Flagged by Analyzer 0 % (0-5); Neutrophil % 62.5 % (47-70); Platelet Count 336 K/mm3 (150-450); RBC Distribution Width CV 14.4 % (11.6-14.6); RBC Distribution Width SD 48.9 fl (35.1-43.9); Red Blood Count 5.45 M/mm3 (4.6-6.2); White Blood Count 9.8 K/mm3 (4.4-11.0)
[2019-02-08 17:08] LABS: ALB/GLOB Ratio 1.1 RATIO (0.9-2.4); AST(SGOT) 25 U/L (15-37); Alanine Aminotransfer ALT/SGPT 35 U/L (16-61); Alkaline Phosphatase 53 U/L (45-117); Anion Gap 9 (5-15); BUN 37 mg/dL (7-18); BUN/Creat Ratio 21.9 RATIO (10-20); Bilirubin, Direct 0.13 mg/dL (0.00-0.30); Calcium,Total 9.9 mg/dL (8.5-10.1); Chloride 96 mmol/L (98-107); Cholesterol 210 mg/dL (200); Creatinine, Serum 1.69 mg/dL (0.70-1.30); EST Glomerular Filtration Rate 45 mL/min (>60); Est Glom Filt Rate - Afr Amer 54 mL/min (>60); Globulin 3.8 g/dL (2.2-4.2); Glucose 163 mg/dL (74-106); High Density Lipoprotein 36 mg/dL; Potassium 3.4 mmol/L (3.5-5.1); Protein, Total 7.8 g/dL (6.4-8.2); Sodium Level 134 mmol/L (136-145); Triglycerides 442 mg/dL
== END ==
PROVIDERS: Family Provider Family Medicine; PCP Family Medicine; Visit Provider Internal Medicine Cardiovascular Disease
DX: E78.5 Hyperlipidemia, unspecified (principal); R10.32 Left lower quadrant pain
CPT/HCPCS: 36415; 80053; 80061; 82248; 85025

== ENCOUNTER → 2019-02-28 14:43 | Outpatient (CLI) | payer MEDICARE, SELFPAY ==
[2018-09-20 14:44] VITALS: BMI 29.7
[2019-02-28 17:54] LABS: Anion Gap 7 (5-15); BUN 32 mg/dL (7-18); BUN/Creat Ratio 21.8 RATIO (10-20); Calcium,Total 9.9 mg/dL (8.5-10.1); Chloride 95 mmol/L (98-107); Creatinine, Serum 1.47 mg/dL (0.70-1.30); EST Glomerular Filtration Rate 52 mL/min (>60); Est Glom Filt Rate - Afr Amer 63 mL/min (>60); Glucose 141 mg/dL (74-106); Magnesium 1.5 mg/dL (1.6-2.6); Potassium 3.1 mmol/L (3.5-5.1); Sodium Level 134 mmol/L (136-145)
[2019-02-28 18:17] LABS: Digoxin Level 0.76 ng/mL (0.80-2.00)
== END ==
PROVIDERS: PCP Family Medicine; Visit Provider Internal Medicine Cardiovascular Disease
DX: N18.3 Chronic kidney disease, stage 3 (moderate) (principal); I50.9 Heart failure, unspecified; E87.6 Hypokalemia
CPT/HCPCS: 36415; 80048; 80162; 83735

== ENCOUNTER → 2019-04-08 15:46 | Outpatient (CLI) | payer MEDICARE, SELFPAY ==
[2019-04-08 14:55] VITALS: BMI 31.0
[2019-04-08 17:07] LABS: Anion Gap 6 (5-15); BUN 35 mg/dL (7-18); BUN/Creat Ratio 18.4 RATIO (10-20); Calcium,Total 9.5 mg/dL (8.5-10.1); Chloride 96 mmol/L (98-107); EST Glomerular Filtration Rate 39 mL/min (>60); Est Glom Filt Rate - Afr Amer 47 mL/min (>60); Glucose 129 mg/dL (74-106); Potassium 3.8 mmol/L (3.5-5.1); Sodium Level 135 mmol/L (136-145)
== END ==
PROVIDERS: PCP Family Medicine; Referring Provider Internal Medicine Cardiovascular Disease; Visit Provider Internal Medicine Cardiovascular Disease
DX: I25.810 Atherosclerosis of coronary artery bypass graft(s) without angina pectoris (principal); I25.5 Ischemic cardiomyopathy; I50.42 Chronic combined systolic (congestive) and diastolic (congestive) heart failure; Z95.810 Presence of automatic (implantable) cardiac defibrillator
CPT/HCPCS: 36415; 80048

== ENCOUNTER → 2019-11-06 10:12 | Outpatient (CLI) | payer MEDICARE, SELFPAY ==
[2019-04-08 14:55] VITALS: BMI 31.0
--- NOTE | 2019-11-06 10:14 | RAD_ITS ---
STUDY: X-RAY - LEFT TIBIA AND FIBULA REASON FOR EXAM: Male, 59 years old. Fall 2 months ago, swelling on distal lower left leg that went away, most pain in left hip to knee, pain with movement, hematoma TECHNIQUE: 2 view(s) of the tibia and fibula were obtained. COMPARISON: None. FINDINGS: Normal visualized tibia. Normal visualized fibula. There is no demonstrated acute fracture. The soft tissue structures are unremarkable. RAD/Tibia & Fibula 2 Views IMPRESSION: Normal x-ray examination of the tibia and fibula. Electronically Signed: Janes Cortez MD at 22:59 EDT , Service support ,
--- NOTE | 2019-11-06 10:15 | RAD_ITS ---
STUDY: X-RAY - RIGHT SHOULDER REASON FOR EXAM: Male, 59 years old. right rotator cuff pain, most pain at night, no known injury TECHNIQUE: 4 view(s) of the shoulder. COMPARISON: None. FINDINGS: Normal glenohumeral articulation. Normal acromioclavicular joint. Normal acromion. Normal humeral head and visualized proximal humerus. The soft tissue structures are unremarkable. There is no demonstrated fracture. Normal visualized pulmonary apex. RAD/Shoulder min 2 Views IMPRESSION: Normal x-ray examination of the shoulder. Electronically Signed: Janes Cortez MD at 22:57 EDT , Service support ,
--- NOTE | 2019-11-06 10:25 | RAD_ITS ---
STUDY: X-RAY - LEFT KNEE REASON FOR EXAM: Male, 59 years old. Fall 2 months ago, most pain in left hip to knee, pain with movement, hematoma TECHNIQUE: 5 view(s) of the knee. COMPARISON: None. FINDINGS: Normal visualized distal femur. Normal visualized proximal tibia and fibula. Normal proximal tibiofibular articulation. There is no demonstrated fracture. Normal medial femorotibial compartment. Normal lateral femorotibial compartment. Normal patellofemoral articulation. There is no demonstrated joint effusion. The soft tissue structures are unremarkable. RAD/Knee 4 or More Views IMPRESSION: Normal x-ray examination of the knee. Electronically Signed: Janes Cortez MD at 22:58 EDT , Service support ,
== END ==
PROVIDERS: PCP Family Medicine; Referring Provider Family Medicine; Visit Provider Family Medicine
DX: S80.12XA Contusion of left lower leg, initial encounter (principal); M75.80 Other shoulder lesions, unspecified shoulder
CPT/HCPCS: 73030; 73564; 73590

== ENCOUNTER → 2020-03-10 15:43 | Outpatient (CLI) | payer MEDICARE, SELFPAY ==
[2019-04-08 14:55] VITALS: BMI 31.0
[2020-03-10 17:52] LABS: Absolute Lymphocyte Count 2.45 X10^3/uL (0.83-4.51); Absolute Neutrophil Count 6.2 X10^3/uL (2.0-7.7); Basophil# 0.05 X10^3/uL; Basophil% 0.5 % (0-1); Eosinophil# 0.15 X10^3/uL; Eosinophils% 1.5 % (0-5); Hematocrit 46.7 % (40-54); Hemoglobin 15.7 g/dL (13.0-16.5); Lymphocyte # 2.45 X10^3/ul (4.0); Lymphocyte % 25.1 % (19-41); Mean Corp Hgb Conc 33.6 g/dL (32-36); Mean Corpuscular Hgb 30.7 pg (27.0-32.0); Mean Corpuscular Volume 91.4 fL (80-94); Mean Platelet Vol. 9.9 fl (6.2-12.0); Monocyte# 0.84 X10^3/uL; Monocyte% 8.6 % (0-10); NRBC Flagged by Analyzer 0 % (0-5); Neutrophil # 6.22 X10^3/uL (2.7-7.7); Neutrophil % 63.9 % (47-70); Platelet Count 448 K/mm3 (150-450); RBC Distribution Width CV 14.8 % (11.6-14.6); RBC Distribution Width SD 50.1 fl (35.1-43.9); Red Blood Count 5.11 M/mm3 (4.6-6.2); White Blood Count 9.8 K/mm3 (4.4-11.0)
[2020-03-10 18:20] LABS: Digoxin Level 1.11 ng/mL (0.80-2.00)
[2020-03-10 18:21] LABS: ALB/GLOB Ratio 0.8 RATIO (0.9-2.4); AST(SGOT) 23 U/L (15-37); Alanine Aminotransfer ALT/SGPT 24 U/L (16-61); Albumin, Serum 3.9 g/dL (3.2-5.0); Alkaline Phosphatase 54 U/L (45-117); Anion Gap 9 (5-15); BUN 34 mg/dL (7-18); BUN/Creat Ratio 17.8 RATIO (10-20); Calcium,Total 10.2 mg/dL (8.5-10.1); Chloride 100 mmol/L (98-107); Creatinine, Serum 1.91 mg/dL (0.70-1.30); EST Glomerular Filtration Rate 39 mL/min (>60); Est Glom Filt Rate - Afr Amer 47 mL/min (>60); Globulin 4.7 g/dL (2.2-4.2); Glucose 132 mg/dL (74-106); Potassium 3.9 mmol/L (3.5-5.1); Protein, Total 8.6 g/dL (6.4-8.2); Sodium Level 135 mmol/L (136-145); Uric Acid 7.1 mg/dL (3.5-7.2)
[2020-03-10 18:27] LABS: Hemoglobin A1c 6.3 % (3.8-5.6)
== END ==
PROVIDERS: PCP Family Medicine; Visit Provider Family Medicine
DX: E11.9 Type 2 diabetes mellitus without complications (principal); I50.9 Heart failure, unspecified; N18.30 Chronic kidney disease, stage 3 unspecified; M10.9 Gout, unspecified
CPT/HCPCS: 36415; 80053; 80162; 83036; 84443; 84550; 85025